=== PATIENT | female | born 1970 | race Two or more races ===

== ENCOUNTER 2024-12-26 21:00 | Emergency (ER) | payer OTHER ==
[~2024-12-26] VITALS: Ht 157.5 cm; Wt 68.9 kg
[2024-12-26 21:40] VITALS: BP 139/78; TEMP 98.4; O2SAT 98
[2024-12-26] MEDS ORDERED: IBUPROFEN 400 MG TABLET ONE (21:44)
[2024-12-26] MEDS ORDERED: LIDOCAINE 5% (PATCH) 1 EA PATCH TP ONE (21:44)
[2024-12-26] MEDS ORDERED: CYCLOBENZAPRINE 10 MG TABLET ONE (21:44)
[2024-12-26] MEDS: IBUPROFEN 400 MG TABLET PO ONE (21:49)
[2024-12-26] MEDS: LIDOCAINE 5% (PATCH) 1 EA PATCH TP STA (21:50)
[2024-12-26] MEDS: CYCLOBENZAPRINE 10 MG TABLET PO ONE (21:50)
[2024-12-26 22:05] LABS: APPEARANCE,URINE CLEAR (CLEAR); BILIRUBIN,URINE NEGATIVE (NEGATIVE); BLOOD, URINE NEGATIVE Ery/uL (NEGATIVE); COLOR,URINE YELLOW (YELLOW); KETONES,URINE NEGATIVE (NEGATIVE); LEUKOCYTE ESTERASE ,URINE 1+ (NEGATIVE); NITRITE, URINE NEGATIVE (NEGATIVE); PH,URINE 6.5 (5.0-8.0); PROTEIN,URINE NEGATIVE (NEGATIVE); UGLUCOSE NEGATIVE (NEGATIVE)
[2024-12-26] MEDS ORDERED: IBUP-1490 PO (22:12)
[2024-12-26] MEDS ORDERED: CYCL5TAB PO (22:12)
[2024-12-26] MEDS ORDERED: LIDO30AD10 TP (22:12)
[2024-12-26 22:21] LABS: ADD URINE CULTURE YES; BACTERIA,URINE Rare /HPF (None Seen); RBC,URINE 0-2 /HPF (0-2); SQUAMOUS EPITHELIAL CELL,UR 0-2 /HPF (None Seen); WBC,URINE 0-2 /HPF (0-3)
== END 2024-12-26 22:36 | disposition home or self-care (01) ==
LOC: ER 21:07
DX: M54.50 Low back pain, unspecified (principal); E11.9 Type 2 diabetes mellitus without complications
CPT/HCPCS: 81001; 87086-TC